=== PATIENT | male | born 1960 | race Caucasian/White ===

== ENCOUNTER 2020-06-30 08:04 | Emergency (ER) | payer BC ==
--- NOTE | 2020-06-30 09:38 | RAD REPORT ---
EXAM DESCRIPTION: RAD - Chest Single View - 06/30/2020 9:17 am CLINICAL HISTORY: COUGH Chest pain. COMPARISON: Chest Pa And Lat (2 Views) dated 11/19/2016 FINDINGS: Portable technique limits examination quality. Mild interstitial prominence is seen which may indicate a mild bronchitis or viral infection. Minimal linear atelectasis is seen in the left lung base. The heart is normal in size. No displaced fracture s.
[2020-06-30 09:39] LABS: SARS-COV-2 RT PCR NEGATIVE (NEGATIVE)
--- NOTE | 2020-06-30 09:52 | ER ---
Nurse's Notes [facility] Name: Kana Fong Age: 60 yrs Sex: Male : 1960 Arrival Date: 06/30/2020 Time: 08:09 Bed 17 Private MD: Diagnosis: Cough Presentation: 06/30 08:13 Chief complaint: Patient states: fever, body aches and chills that began 3 days ago. ss Coronavirus screen: Client presents with at least one sign or symptom that may indicate coronavirus-19. Standard/surgical mask placed on the client. Provider contacted for isolation considerations. Ebola Screen: Patient denies exposure to infectious person. Patient denies travel to an Ebola-affected area in the 21 days before illness onset. Initial Sepsis Screen: Does the patient meet any 2 criteria? HR > 90 bpm. Does the patient have a suspected source of infection? No. Patient's initial sepsis screen is negative. Risk Assessment: Do you want to hurt yourself or someone else? Patient reports no desire to harm self or others. Onset of symptoms was June 27, 2020. 08:13 Method Of Arrival: Ambulatory 08:13 Acuity: CHARLES 3 ss Historical: - Allergies: 08:16 No Known Allergies; ss - PMHx: 08:16 Hypertension; Hypothyroidism; GERD; ss - PSHx: 08:16 facial reconstruction; Hernia repair; ss - Immunization history:: Adult Immunizations up to date. - Social history:: Smoking status: Patient denies any tobacco usage or history of. - Family history:: not pertinent. - Hospitalizations: : No recent hospitalization is reported. Screenin:46 Abuse screen: Denies threats or abuse. Denies injuries from another. Nutritional iw screening: No deficits noted. Tuberculosis screening: No symptoms or risk factors identified. Fall Risk None identified. Assessment: 08:45 General: Appears in no apparent distress. Behavior is calm, cooperative. General: iw Reports feeling ill for fatigue for. Pain: Complains of pain in throat, body aches. Neuro: Level of Consciousness is awake, alert, obeys commands, Oriented to person, place, time, situation, Moves all extremities. Full function. Cardiovascular: Patient's skin is warm and dry. Respiratory: Airway is patent Respiratory effort is even, unlabored, Breath sounds are clear bilaterally. EENT: Throat is reddened bilaterally with gag reflex present. Derm: Skin is intact, is healthy with good turgor. Musculoskeletal: Range of motion: intact in all extremities. Vital Signs: 08:13 BP 144 / 88; Pulse 105; Resp 18; Temp 98.2(O); Pulse Ox 97% on R/A; Weight 102.06 kg; ss Height 5 ft. 11 in. (180.34 cm); Pain 8/10; 08:13 Body Mass Index 31.38 (102.06 kg, 180.34 cm) ED Course: 08:09 Patient arrived in ED. mr 08:15 Triage completed. ss 08:16 Arm band placed on right wrist. ss 08:18 Angus Crespo MD is Attending Physician. rn 08:27 Sunshine Stiles RN is Primary Nurse. iw 08:43 Strep Sent. iw 08:45 Patient has correct armband on for positive identification. iw 09:20 XRAY Chest (1 view) In Process Unspecified. EDMS 10:14 No provider procedures requiring assistance completed. Patient did not have IV access iw during this emergency room visit. Administered Medications: No medications were administered Outcome: 09:52 Discharge ordered by . rn 10:14 Discharged to home ambulatory. iw 10:14 Condition: good 10:14 Discharge instructions given to patient, Instructed on discharge instructions, follow up and referral plans. medication usage, Demonstrated understanding of instructions, follow-up care, medications, Prescriptions given X 2. 10:15 Patient left the ED. Signatures: Dispatcher [employer] EDIA Saurav Binta mr Sunshine Stiles, RN RN Angus Crespo MD MD rn Smirch, Shelby, RN RN Corrections: (The following items were deleted from the chart) 08:27 08:13 Acuity: CHARLES 4 [facility] 08:49 08:43 Influenza Screen (A \T\ B)+BA.LAB.BRZ drawn and sent. iw EDMS 08:49 08:43 CORONAVIRUS+MR.LAB.BRZ drawn and sent. EDMS
--- NOTE | 2020-06-30 09:52 | EDPHYS ---
Physician Documentation [facility] Name: Kana Fong Age: 60 yrs Sex: Male : 1960 Arrival Date: 06/30/2020 Time: 08:09 Bed 17 Private MD: ED Physician Angus Crespo HPI: 06/30 08:28 This 60 yrs old Male presents to ER via Ambulatory with complaints of Cough, rn Fever, Sore Throat, Body Aches. 08:28 The patient or guardian reports cough, flu symptoms. Onset: The symptoms/episode rn began/occurred 3 day(s) ago. Severity of symptoms: At their worst the symptoms were mild, in the emergency department the symptoms are unchanged. Modifying factors: The symptoms are alleviated by nothing, the symptoms are aggravated by nothing. Associated signs and symptoms: Pertinent positives: fever, sore throat, Pertinent negatives: chest pain, vomiting. The patient has experienced a previous episode. Reports 3 days of fever, cough, sore throat, no known sick contacts, no runny nose or abd pain/issues. Had appt for testing at urgent care today, came here instead because of fever and chills. Denies sob. . Historical: - Allergies: 08:16 No Known Allergies; ss - PMHx: 08:16 Hypertension; Hypothyroidism; GERD; ss - PSHx: 08:16 facial reconstruction; Hernia repair; ss - Immunization history:: Adult Immunizations up to date. - Social history:: Smoking status: Patient denies any tobacco usage or history of. - Family history:: not pertinent. - Hospitalizations: : No recent hospitalization is reported. ROS: 08:28 Constitutional: + fever and chills Eyes: Negative for injury, pain, redness, and learning coach, ENT: + sore throat Neck: Negative for injury, pain, and swelling, Cardiovascular: Negative for chest pain, palpitations, and edema, Respiratory: + cough, neg for sob Abdomen/GI: Negative for abdominal pain, nausea, vomiting, diarrhea, and constipation, MS/Extremity: Negative for injury and deformity, Skin: Negative for injury, rash, and discoloration, Neuro: Negative for headache, weakness, numbness, tingling, and seizure. 08:28 All other systems are negative. Exam: 08:28 Constitutional: This is a well developed, well nourished patient who is awake, alert, rn and in no acute distress. Head/Face: Normocephalic, atraumatic. Eyes: Pupils equal round and reactive to light, extra-ocular motions intact. Lids and lashes normal. Conjunctiva and sclera are non-icteric and not injected. Cornea within normal limits. Periorbital areas with no swelling, redness, or edema. ENT: No stridor Neck: + non-tender anterior cervical LAD Cardiovascular: Tachycardic, regular Respiratory: Speaking full sentences, unlabored Skin: Warm, dry MS/ Extremity: Pulses equal, no cyanosis. Neuro: Awake and alert, GCS 15 Vital Signs: 08:13 BP 144 / 88; Pulse 105; Resp 18; Temp 98.2(O); Pulse Ox 97% on R/A; Weight 102.06 kg; ss Height 5 ft. 11 in. (180.34 cm); Pain 8/10; 08:13 Body Mass Index 31.38 (102.06 kg, 180.34 cm) ss MDM: 08:18 Patient medically screened. rn 09:51 Differential Diagnosis: Bronchitis Influenza Upper Respiratory Infection Viral Syndrome rn Pneumonia. Data reviewed: vital signs, nurses notes, lab test result(s), radiologic studies, plain films, and as a result, I will discharge patient. Counseling: I had a detailed discussion with the patient and/or guardian regarding: the historical points, exam findings, and any diagnostic results supporting the discharge/admit diagnosis, lab results, radiology results, the need for outpatient follow up, to return to the emergency department if symptoms worsen or persist or if there are any questions or concerns that arise at home. Special discussion: I discussed with the patient/guardian in detail that at this point there is no indication for admission to the hospital. It is understood, however, that if the symptoms persist or worsen the patient needs to return immediately for re-evaluation. ED course: COVID neg, CXR shows interstitial pattern, will dc home with abx and steroids, may be false neg COVID. . 06/30 08:26 Order name: Strep; Complete Time: 09:50 rn 06/30 08:27 Order name: XRAY Chest (1 view); Complete Time: 09:50 rn 06/30 09:39 Order name: COVID-19/FLU A+B; Complete Time: 09:50 EDMS 03/22 09:42 Order name: Throat Culture EDMS Administered Medications: No medications were administered Disposition: 06/30/20 09:52 Discharged to Home. Impression: Cough. - Condition is Stable. - Discharge Instructions: Cough, Adult. - Prescriptions for Prednisone 20 mg Oral Tablet - take 3 tablet by ORAL route once daily for 5 days; 15 tablet. Zithromax Z- Fabian 250 mg Oral Tablet - take 1 tablet by ORAL route as directed for 5 days Day 1 - take two (2) tablets one time. Day 2, 3, 4 , 5 take one (1) tablet once daily.; 6 tablet. - Medication Reconciliation Form, Thank You Letter, Antibiotic Education, Prescription Opioid Use form. - Follow up: Private Physician; When: As needed; Reason: Recheck today's complaints, Re-evaluation by your physician. - Problem is new. - Symptoms have improved. Signatures: Dispatcher [employer] EDCO Sunshine Stiles RN RN iw Nieto, Roman, MD MD rn Smirch, Shelby, RN RN ss Corrections: (The following items were deleted from the chart) 08:49 08:27 Influenza Screen (A \T\ B)+BA.LAB.BRZ ordered. [facility] EDCO 08:49 08:27 CORONAVIRUS+MR.LAB.BRZ ordered. [facility] 10:15 09:52 06/30/2020 09:52 Discharged to Home. Impression: Cough. Condition is Stable. iw Forms are Medication Reconciliation Form, Thank You Letter, Antibiotic Education, Prescription Opioid Use. Follow up: Private Physician; When: As needed; Reason: Recheck today's complaints, Re-evaluation by your physician. Problem is new. Symptoms have improved. rn
[2020-06-30 10:25] VITALS: BP 144/88; TEMP 98.2; O2SAT 97
== END 2020-06-30 10:15 | disposition home or self-care (01) ==
LOC: ER 08:04
DX: R05 Cough (principal); I10 Essential (primary) hypertension; E03.9 Hypothyroidism, unspecified; K21.9 Gastro-esophageal reflux disease without esophagitis; Z20.822 Contact with and (suspected) exposure to COVID-19
CPT/HCPCS: 87070; 87081; 0240U; 71045; 99283